=== PATIENT | male | born 1945 | race Caucasian/White ===

== ENCOUNTER → 2016-07-21 | Outpatient (CLI) | payer MEDICARE, MEDICAID | END | disposition home or self-care (01) | LOC: MRI 11:00 | PROVIDERS: ATTEND Internal Medicine | DX: M51.27 Other intervertebral disc displacement, lumbosacral region (principal); M48.07 Spinal stenosis, lumbosacral region; M12.88 Other specific arthropathies, not elsewhere classified, other specified site; M47.897 Other spondylosis, lumbosacral region; M53.87 Other specified dorsopathies, lumbosacral region; M47.894 Other spondylosis, thoracic region; R26.2 Difficulty in walking, not elsewhere classified | CPT/HCPCS: 72148 ==